=== PATIENT | male | born 1945 | race Caucasian/White ===

== ENCOUNTER 2018-02-27 11:27 | Day surgery (SDC) | payer MEDICARE ==
[2018-02-26 12:40] VITALS: BP 158/93
[2018-02-26 13:14] LABS: MICROSCOPIC NOT IND
[~2018-02-27] VITALS: Ht 175.3 cm; Wt 78.4 kg
[~2018-02-27 11:27] MED LIST: FESO4TAB PO; ROSU40TA PO; TAMS-11 PO; TOLT4CAP12 PO
[2018-02-27] MEDS ORDERED: LACTATED RINGERS 1,000 ML IV SCH (11:51)
[2018-02-27] MEDS ORDERED: MIDAZOLAM 1 MG/ML, 2ML ONE (14:24)
[2018-02-27] MEDS ORDERED: FENTANYL PF 250 MCG/5ML ONE (14:24)
[2018-02-27] MEDS ORDERED: ONDANSETRON 2MG/ML, 2ML ONE (14:31)
[2018-02-27] MEDS ORDERED: DEXAMETHASONE 4 MG/ML, 1ML ONE (14:31)
[2018-02-27] MEDS ORDERED: SUCCINYLCHOLINE 20 MG/ML, 10ML ONE (14:31)
[2018-02-27] MEDS ORDERED: PROPOFOL 10 MG/ML, 20ML ONE (14:31)
[2018-02-27] MEDS ORDERED: ALBUTEROL SULFATE 2.5 MG/3 ML NPPB PRN (15:00)
[2018-02-27] MEDS ORDERED: PROMETHAZINE 25 MG/ML, 1ML IV PRN (15:00)
[2018-02-27] MEDS ORDERED: hydrALAzine 20 MG/ML, 1ML IV PRN (15:00)
[2018-02-27] MEDS ORDERED: ACETAMINOPHEN 325 MG TABLET PO PRN (15:00)
[2018-02-27] MEDS ORDERED: LABETALOL 5MG/ML, 20ML IV PRN (15:00)
[2018-02-27] MEDS ORDERED: HYDROmorphone 2 MG/ML, 1ML IVPush PRN (15:00)
[2018-02-27] MEDS ORDERED: OXYcodone 5 MG/5 ML ORAL.SOL UDC ONE ×2 (15:38→16:03)
[2018-02-27] MEDS: OXYcodone 5 MG/5 ML ORAL.SOL UDC PO PRN ×2 (15:39→16:04)
[2018-02-27] MEDS ORDERED: OMNIPAQUE 350 MG/ML, 50 ML BOTTLE ONE (15:40)
[2018-02-27] MEDS ORDERED: FENTANYL PF 100 MCG/2ML ONE (15:59)
[2018-02-27] MEDS: FENTANYL PF 100 MCG/2ML IV PRN ×2 (16:02→16:10)
== END 2018-02-27 18:00 | disposition home or self-care (01) ==
LOC: OUT 11:27
PROVIDERS: ATTEND Urology
DX: N35.812 Other bulbous urethral stricture, male (principal); Z98.890 Other specified postprocedural states; Z87.440 Personal history of urinary (tract) infections; Z85.46 Personal history of malignant neoplasm of prostate; Z79.899 Other long term (current) drug therapy
CPT/HCPCS: 52276; 74450; 81003; 87086; 93005; J0330; J1100; J2250; J2405; J2704; J3010; J7120; Q9967

== ENCOUNTER 2018-05-31 13:33 | Outpatient (CLI) | payer MEDICARE ==
[2018-05-31] MEDS ORDERED: ASPI-496 PO (14:06)
== END 2018-05-31 23:59 | disposition home or self-care (01) ==
LOC: STAR 13:33
PROVIDERS: ATTEND Urology
DX: Z01.818 Encounter for other preprocedural examination (principal); N35.012 Post-traumatic membranous urethral stricture
CPT/HCPCS: 93005

== ENCOUNTER 2018-06-05 11:59 | Day surgery (SDC) | payer MEDICARE ==
[~2018-06-05] VITALS: Ht 175.3 cm; Wt 87.0 kg
[~2018-06-05 11:59] MED LIST changes: +ASPI-496 PO; +FENTANYL PF 100 MCG/2ML IV PRN; +HYDROmorphone 1 MG/ML, 1ML IV PRN; +LABETALOL 5MG/ML, 20ML IV PRN; +MEPERIDINE/PF 25MG/0.5ML IVPush PRN; +MIDAZOLAM 1 MG/ML, 2ML IV PRN; +ONDANSETRON 2MG/ML, 2ML IVPush PRN; +OXYcodone 5 MG/5 ML ORAL.SOL UDC PO PRN
[2018-06-05] MEDS ORDERED: LACTATED RINGERS 1,000 ML IV SCH (12:16)
[2018-06-05 12:42] VITALS: BP 154/95
[2018-06-05 13:20] LABS: MICROSCOPIC NOT IND
[2018-06-05 13:21] LABS: CULTURE INDICATED? NO
[2018-06-05] MEDS ORDERED: LIDOCAINE PF 2%, 5ML ONE (15:04)
[2018-06-05] MEDS ORDERED: PROPOFOL 10 MG/ML, 20ML ONE (15:04)
[2018-06-05] MEDS ORDERED: MIDAZOLAM 1 MG/ML, 2ML ONE (15:05)
[2018-06-05] MEDS ORDERED: FENTANYL PF 100 MCG/2ML ONE (15:05)
== END 2018-06-05 17:40 | disposition home or self-care (01) ==
LOC: OUT 11:59
PROVIDERS: ATTEND Urology
DX: N35.912 Unspecified bulbous urethral stricture, male (principal); Z85.46 Personal history of malignant neoplasm of prostate
CPT/HCPCS: 52281; 81003; C1769; J2250; J2704; J3010; J7120